=== PATIENT | female | born 1965 | race Hispanic/Latino ===

== ENCOUNTER 2017-04-27 06:28 | Day surgery (SDC) | payer BC ==
[2017-04-26 14:25] VITALS: BP 136/74
[2017-04-26 14:31] LABS: BASOPHILS % (AUTO) 0.4 % (0.0-5.0); EOSINOPHILS % (AUTO) 0.6 % (0.0-8.0); HEMATOCRIT 35.2 % (36-48); LYMPHOCYTES % (AUTO) 27.1 % (21.0-51.0); MEAN CORPUSCULAR HGB CONC 34.8 g/dL (32.0-36.0); MEAN CORPUSCULAR VOLUME 89.3 fL (79-99); NEUTROPHILS % (AUTO) 65.9 % (40.0-77.0); PLATELET COUNT (AUTO) 205 K/uL (130-400); RED BLOOD CELL COUNT(AUTO) 3.95 MIL/uL (4.00-5.50); RED CELL DISTRIBUTION WIDTH 14.3 % (11.0-15.5); WHITE BLOOD COUNT (AUTO) 8.2 K/uL (4.8-10.8)
[~2017-04-27] VITALS: Ht 154.9 cm; Wt 63.6 kg
[2017-04-27] VITALS (14 sets, daily range): BP systolic 75–121; BP diastolic 42–82
[~2017-04-27 06:28] MED LIST: AMLO-513 PO; LABE300T PO
[2017-04-27] MEDS ORDERED: CEFAZOLIN SODIUM 1 GM VIAL ONE (06:44)
[2017-04-27] MEDS ORDERED: LACTATED RINGERS 1000ML 1,000 ML IV ONE (06:44)
[2017-04-27] MEDS ORDERED: CEFAZOLIN SODIUM 1 GM VIAL IVP ONE (08:00)
[2017-04-27] MEDS ORDERED: WATER FOR INJECTION,STERILE 20 ML VIAL IJ ONE (08:00)
[2017-04-27] MEDS ORDERED: LIDOCAINE HCL MPF 1% 5ML VIAL ONE (08:32)
[2017-04-27] MEDS ORDERED: DEXAMETHASONE SOD PHOSPHATE 10MG/ML 1ML VIAL ONE (08:32)
[2017-04-27] MEDS ORDERED: LIDOCAINE PF 2% 5ML ABBOJECT ONE (08:32)
[2017-04-27] MEDS ORDERED: ONDANSETRON HCL 4 MG/2 ML VIAL ONE (08:32)
[2017-04-27] MEDS ORDERED: LIDOCAINE HCL 2% JELLY 5 ML ONE (08:32)
[2017-04-27] MEDS ORDERED: LIDOCAINE HCL 4% LTA SOL 4 ML VIAL ONE (08:32)
[2017-04-27] MEDS ORDERED: MIDAZOLAM HCL 1 MG/ML 2ML VIAL ONE (08:32)
[2017-04-27] MEDS ORDERED: PROPOFOL 10 MG/ML 20ML VIAL IV ONE (08:33)
[2017-04-27] MEDS ORDERED: FENTANYL CITRATE PF 50 MCG/1 ML 2ML VIAL ONE (08:33)
[2017-04-27] MEDS ORDERED: CALDOLOR 800MG+NS 250ML 250 ML IV ONE (08:42)
[2017-04-27] MEDS ORDERED: MEPERIDINE-PF 50 MG/ML SYG ONE (09:28)
== END 2017-04-27 11:10 | disposition home or self-care (01) ==
LOC: DAH 06:28
PROVIDERS: ATTEND Obstetrics & Gynecology
DX: N75.0 Cyst of Bartholin's gland (principal); I10 Essential (primary) hypertension; Z79.899 Other long term (current) drug therapy; Z90.710 Acquired absence of both cervix and uterus
CPT/HCPCS: 36415; 56440; 85025; A4218; A4315; A4510; A4600; A4606; J0690; J1100; J1741; J2001; J2175; J2250; J2405; J2704; J3010; J3490; J7120

== ENCOUNTER → 2020-10-20 | Outpatient (CLI) | payer OTHER ==
[~2020-10-20] MED LIST changes: -LABE300T PO; +LABE300T2 PO
== END | disposition home or self-care (01) ==
LOC: OIH 13:37
PROVIDERS: ATTEND Internal Medicine Nephrology
DX: Z13.6 Encounter for screening for cardiovascular disorders (principal)
CPT/HCPCS: 75571